=== PATIENT | female | born 2000 | race Caucasian/White ===

== ENCOUNTER 2022-11-27 18:23 | Emergency (ER) | payer BC, SELFPAY ==
[2022-11-27 18:26] VITALS: BP 126/80; PULSE 98; RESP 18; TEMP 36.7; O2SAT 100
--- NOTE | 2022-11-27 18:36 | ED.FEMALEGU ---
HPI - Female Genitourinary General Chief complaint: Urogenital-Female Stated complaint: painful urination, hematuria Time Seen by Provider: 11/27/22 18:35 Source: patient and old records reviewed Mode of arrival: ambulatory Limitations: no limitations History of Present Illness HPI Narrative: Patient is a 21 y/o female who presents to the ED with c/o dysuria and vaginal irritation. Patient reports she was Dx with PID last Thursday, 11/21, at a walk-in clinic [place] away where she [place]. She was given a dose of Ceftriaxone IM in the clinic and Rx'd Doxycycline and Flagyl, which she started on Thursday. Reviewed patient's lab records via phone, no leukocytosis on CBC, CMP unremarkable, UA with trace leuk esterase. Gonorrhea, chlamydia, trichomonas, bacterial vaginosis resulted negative. Urine culture was also negative. Patient has still been taking the antibiotics. She reports having persistent thick white vaginal discharge, dysuria, vaginal spotting, and vaginal irritation. She has not noticed any genital lesions or blistering. LNMP 2.5 weeks ago. Patient is on control. She reports having nausea and vomiting associated with taking the Flagyl, but otherwise denies this. Denies abdominal pain. Denies fever. Related Data Allergies Allergy/AdvReac Type Severity Reaction Status Date / Time No Known Allergies Allergy Verified 11/27/22 18:33 Review of Systems Review of Systems: CONSTITUTIONAL: Denies fever, chills, or sweats. CARDIOVASCULAR: Denies chest pain. RESPIRATORY: Denies dyspnea. GASTROINTESTINAL: See HPI. GENITOURINARY: See HPI. SKIN: See HPI. All systems reviewed & are unremarkable except as noted in HPI and below [facility] Past Medical History Medical History (Updated 11/27/22 @ 20:04 by Yana Walker PA-C) No pertinent past medical history Surgical History Surgical History (Updated 11/27/22 @ 18:36 by Yana Walker PA-C) No pertinent past surgical history Social History Social History (Updated 11/27/22 @ 18:37 by Yana Walker PA-C) Smoking status: Never smoker Exam Narrative: GENERAL: Well appearing, thin, non-toxic, in no acute distress. HEAD: Normocephalic, atraumatic. NECK: Supple. No adenopathy, no masses. RESPIRATORY: Airway patent, respirations nonlabored. Clear to auscultation bilaterally, no rales, rhonchi, wheezing. CARDIOVASCULAR: Regular rate and rhythm without murmurs, rubs, or gallops. Peripheral pulses 2+ and equal bilaterally. ABDOMINAL: Soft, nontender, nondistended, no hepatosplenomegaly. Normoactive BS. PELVIC: Normal external genitalia. Bilateral labia majora somewhat erythematous, irritated, and raw appearing. Some thick white curd-like discharge collected in superior labia minora, appears consistent with mei infection. Mild amount of viscous white vaginal discharge in vaginal vault, could be physiologic. No abnormal odor, green discharge. No significant CMT with speculum exam. No genital lesions, blisters, scabbing. No signs of trauma. MUSCULOSKELETAL: Moves all extremities. Strength/ROM intact without gross deformities. SKIN: Warm, dry, normal color. No rashes. NEURO: A&O X3. Speech clear. Cranial nerves II-XII grossly intact. Steady gait. No ataxic movements. PSYCHIATRIC: Appropriate mood and affect. Normal interaction. Course Vital Signs Vital signs: Vital Signs Temperature 98.1 F 11/27/22 18:26 Pulse Rate 98 11/27/22 18:26 Respiratory Rate 18 11/27/22 18:26 Blood Pressure 126/80 11/27/22 18:26 Pulse Oximetry 100 11/27/22 18:26 Oxygen Delivery Room Air 11/27/22 18:26 Temperature 98.1 F 11/27/22 18:26 Pulse Rate 98 11/27/22 18:26 Respiratory Rate 18 11/27/22 18:26 Blood Pressure 126/80 11/27/22 18:26 Pulse Oximetry 100 11/27/22 18:26 Oxygen Delivery Room Air 11/27/22 18:26 MDM - Female Genitourinary MDM Narrative Medical decision making narrative: Patient presented to ED with report of mikeor
[2022-11-27 19:05] LABS: Basophils Absolute Auto 0.1 K/mm3 (0.0-0.1); Eosinophils Percent Auto 0.4 % (0-4.4); Hematocrit 38.7 % (37.0-47.0); Immature Granulocyte Absolute 0.01 K/mm3 (0.00-0.031); Immature Granulocyte Percent A 0.1 % (0-0.5); Lymphocytes Absolute Auto 1.91 K/mm3 (0.9-3.2); Lymphocytes Percent Auto 24.7 % (18.3-44.2); Mean Corpuscular HGB Conc 33.6 g/dl (32-36); Mean Corpuscular Hemoglobin 32.1 pg (26-34); Mean Corpuscular Volume 95.6 fl (80-100); Mean Platelet Volume 9.8 fl (7.4-10.4); Monocytes Absolute Auto 0.8 K/mm3 (0.1-0.6); Monocytes Percent Auto 9.7 % (2.6-8.5); Neutrophils Absolute Auto 4.9 K/mm3 (1.3-6.7); Neutrophils Percent Auto 64.1 % (45.5-73.1); Platelet Count Result 243 k/mm3 (150-375); Red Blood Count 4.05 M/mm3 (4.2-5.4); Red Cell Distribution Width 11.6 % (11.5-14.5); White Blood Count 7.7 K/mm3 (4.5-10.0)
[2022-11-27 19:14] LABS: Appearance Urine Clear (Clear); Bilirubin Urine Negative (Negative); Blood Urine Negative (Negative); Color Urine Yellow (Yellow); Glucose Urine UA Negative (Negative); Ketones Urine Trace mg/dL (Negative); Leukocyte Esterase Ur 2+ LEU/UL (Negative); Nitrate Urine Negative (Negative); Protein Urine Trace mg/dL (Negative); Specific Grav Ur >= 1.030 (1.001-1.035); Urobilinogen Urine 0.2 mg/dL (<2.0); pH Urine 5.5 (5.0-9.0)
[2022-11-27 19:17] LABS: Alanine Aminotransferase 26 U/L (6-35); Albumin Level 4.7 g/dL (3.7-5.6); Alkaline Phosphatase 49 U/L (45-116); Anion Gap 10 mmol/L (8-16); Aspartate Amino Transferase 61 U/L (14-36); Bilirubin,Total 0.4 mg/dL (0.2-1.3); Blood Urea Nitrogen 6 mg/dL (8-21); Carbon Dioxide 22 mmol/L (22-30); Chloride 105 mmol/L (98-107); Estimated CRCL calculation 92 ml/min; Estimated Glomerular Filt Rate > 60; Glucose 98 mg/dL (65-110); Potassium 3.8 mmol/L (3.4-5.0); Sodium 137 mmol/L (134-143)
[2022-11-27 19:19] LABS: Bacteria Urine Trace /hpf; Mucus Urine Rare /lpf; Squamous Epithelial Cell Urine Moderate /hpf (Few); WBC Urine 31-50 /hpf
[2022-11-27 19:20] LABS: Add Urine Microscopic? YES
[2022-11-27] MEDS: FLUCONAZOLE 150 MG TABLET PO (20:11)
[2022-11-27] MEDS: CEPHALEXIN 500 MG CAPSULE PO (20:15)
== END 2022-11-27 20:30 | disposition home or self-care (01) ==
PROVIDERS: Emergency Provider Physician Assistant
DX: N30.01 Acute cystitis with hematuria (principal); B37.31 Acute candidiasis of vulva and vagina; N73.9 Female pelvic inflammatory disease, unspecified
CPT/HCPCS: 36415; 80053; 81001; 81025; 85025; 87086; 87088; 99284; A9270